=== PATIENT | female | born 1940 | race African-American/Black ===

== ENCOUNTER 2021-04-02 16:00 | Emergency (ER) | payer MEDICARE ==
[~2021-04-02] VITALS: Ht 167.6 cm; Wt 61.3 kg
[2021-04-02 17:00] VITALS: BP 144/75
[2021-04-02] MEDS ORDERED: HYDR30CR74 TP (17:45)
--- NOTE | 2021-04-02 17:45 | PHYS DOC ---
Past Medical History Past Medical History: No Pertinent History (DANY OLIVA APRN) Past Surgical History: No Surgical History (DANY OLIVA APRN) Smoking Status: Never Smoker Alcohol Use: None (DANY OLIVA APRN) General Adult EDM: Chief Complaint: SKIN RASH/ABSCESS HPI: HPI: Patient is an 81-year-old female that presents today with a rash over her upper back upper chest and arms area. Patient is present with son, and states that patient has had the rash for a little over 3 weeks, patient states the rash is itchy, but does not have any drainage from any of the raised areas. Patient denies medications that she have taken recently, denies changing any soaps or laundry detergents in her household, or denies pets in the household as well. Patient states she does not see his physicians and has not seen a physician for a very long time. Son does state that his brother with whom the patient lives with had given her with hydrocortisone cream she used it a couple of times and states it did not help. (DANY OLIVA APRN) Review of Systems: Review of Systems: Constitutional: Denies fever or chills. [] Eyes: Denies change in visual acuity. [] HENT: Denies nasal congestion or sore throat. [] Respiratory: Denies cough or shortness of breath. [] Cardiovascular: Denies chest pain or edema. [] GI: Denies abdominal pain, nausea, vomiting, bloody stools or diarrhea. [] : Denies dysuria. [] Musculoskeletal: Denies back pain or joint pain. [] Integument: rash. [] Neurologic: Denies headache, focal weakness or sensory changes. [] Endocrine: Denies polyuria or polydipsia. [] Lymphatic: Denies swollen glands. [] Psychiatric: Denies depression or anxiety. [] (DANY OLIVA APRN) Heart Score: C/O Chest Pain: N/A Risk Factors: Risk Factors: DM, Current or recent (<one month) smoker, HTN, HLP, family history of CAD, obesity. Risk Scores: Score 0 - 3: 2.5% MACE over next 6 weeks - Discharge Home Score 4 - 6: 20.3% MACE over next 6 weeks - Admit for Clinical Observation Score 7 - 10: 72.7% MACE over next 6 weeks - Early Invasive Strategies (DANY OLIVA APRN) Allergies: Allergies: Allergies Coded Allergies Type Severity Reaction Last Updated Verified No Known Drug Allergies 04/02/21 No (DANY OLIVA APRN) Physical Exam: PE: Constitutional: Well developed, well nourished, no acute distress, non-toxic appearance. [] HENT: Normocephalic, atraumatic, bilateral external ears normal, oropharynx moist, no oral exudates, nose normal. [] Eyes: PERRLA, EOMI, conjunctiva normal, no discharge. [] Neck: Normal range of motion, no tenderness, supple, no stridor. [] Cardiovascular:Heart rate regular rhythm, no murmur [] Lungs & Thorax: Bilateral breath sounds clear to auscultation [] Abdomen: Bowel sounds normal, soft, no tenderness, no masses, no pulsatile masses. [] Skin: Skin is warm and dry, raised rash with thickening of skin noticed over her back upper back upper chest arms and legs, no drainage noted from raised area, due to patient's ethnicity and skin color unable to determine if reddened. Back: No tenderness, no CVA tenderness. [] Extremities: No tenderness, no cyanosis, no clubbing, ROM intact, no edema. [] Neurologic: Alert and oriented X 3, normal motor function, normal sensory function, no focal deficits noted. [] Psychologic: Affect normal, judgement normal, mood normal. [] (DANY OLIVA APRN) Current Patient Data: Vital Signs: Vital Signs Date Time Temp Pulse Resp B/P (MAP) Pulse Ox O2 Delivery O2 Flow Rate FiO2 04/02/21 17:00 98.2 77 17 144/75 (98) 94 Room Air 98.2 (DANY OLIVA APRN) EKG: EKG: [] (DANY OLIVA APRN) Radiology/Procedures: Radiology/Procedures: [] (DANY OLIVA APRN) Course & Med Decision Making: Course & Med Decision Making Pertinent Labs and Imaging studies reviewed. (See chart for details) Will give son and patient a list of primary care physicians here at [facility] along with clinics in the area that they can visit for establishing primary care. We will treat patient for eczema with topical steroids for the next 7 days patient will need further follow-up with her primary care physician] (DANY OLIVA APRN) Course & Med Decision Making I have participated in the care of this patient and I have reviewed and agree with all pertinent clinical information above including history, exam, and recommendations. Shawn Benedict DO (SHAWN BENEDICT DO) Richie Disclaimer: Richie Disclaimer: This electronic medical record was generated, in whole or in part, using a voice recognition dictation system. (DANY OLIVA APRN) Departure Departure Impression: Primary Impression: Eczema Qualified Codes: L30.9 - Dermatitis, unspecified Disposition: 20 Condition: STABLE Referrals: NO PCP (PCP) NAYA PEREZ MD Patient Instructions: Eczema Additional Instructions: Use use prescription cream twice daily for the next 7 days Use soaps or laundry detergents that are fragrance free or dye free Keep skin moisturized with moisturizers that are dye free and fragrance free May take Benadryl at night as labeled directed for itching Follow-up with a primary care physician from the list that was given to you for further management of this Scripts Hydrocortisone (Hydrocortisone) 30 Gm Cream.appl 1 MANOLO TP BID for eczema for 7 Days, #60 GM 0 Refills apply to rash twice daily, make sure skin is clean and dry before application Prov: DANY OLIVA APRN 04/02/21 DANY OLIVA APRN Apr 02, 2021 17:45 SHAWN BENEDICT DO Apr 03, 2021 07:42
== END 2021-04-02 17:58 | disposition home or self-care (01) ==
LOC: ER 16:00
DX: L30.9 Dermatitis, unspecified (principal)
CPT/HCPCS: 99282